=== PATIENT | male | born 1995 | race Caucasian/White ===

== ENCOUNTER 2016-05-01 18:26 | Emergency (ER) | payer OTHER ==
[2016-05-01 21:09] LABS: BASOPHIL 0.4 % (0-2); HCT 45.1 % (42.0-52.0); HGB 15.9 g/dl (13.2-18.0); LYMPHOCYTE 20.2 % (15-48); MCH 32.6 pg (25.0-31.0); MCHC 35.3 g/dL (32.0-36.0); MCV 92.6 fL (78.0-100.0); MONOCYTE 7.5 % (0-12); NEUTROPHIL 70.9 % (41-80); PLT 269 K/uL (150-400); RBC 4.87 M/uL (4.70-6.00); WBC 10.2 K/uL (4.0-10.5)
[2016-05-01 21:10] LABS: BILIRUBIN NEGATIVE (NEGATIVE); BLOOD NEGATIVE Ery/uL (NEGATIVE); CLARITY CLEAR (CLEAR); COLOR YELLOW (YELLOW); GLUCOSE (U) NORMAL (NORMAL); KETONE (U) NEGATIVE (NEGATIVE); LEUKOCYTES NEGATIVE Leu/uL (NEGATIVE); NITRITE NEGATIVE (NEGATIVE); PROTEIN NEGATIVE (NEGATIVE)
[2016-05-01 21:25] LABS: CKMB 1.57 ng/mL (0.97-4.94); CREATININE 0.7 mg/dL (0.7-1.2); POTASSIUM 4.2 mmol/L (3.5-5.1); TROPONIN T < 0.010 ng/mL
[2016-05-01 21:41] LABS: AMPHETAMINES NEGATIVE (NEGATIVE); BARBITURATES NEGATIVE (NEGATIVE); BENZODIAZEPINES NEGATIVE (NEGATIVE); COCAINE NEGATIVE (NEGATIVE); MARIJUANA (THC) NEGATIVE (NEGATIVE); METHADONE NEGATIVE (NEGATIVE); TRICYCLIC ANTIDEPRESSANT NEGATIVE (NEGATIVE)
[2016-05-01 21:53] LABS: PROTHROMBIN TIME 12.8 SECONDS (11.7-14.0); PTT 28.1 SECONDS (23.2-31.4)
== END 2016-05-01 22:19 | disposition home or self-care (01) ==
LOC: FER 18:26
PROVIDERS: Emergency Medicine
DX: R07.89 Other chest pain (principal); Z88.0 Allergy status to penicillin
CPT/HCPCS: 36415; 80048; 80305; 81003; 82550; 82553; 84484; 85025; 85610; 85730; 93005